=== PATIENT | male | born 1970 | race Two or more races ===

== ENCOUNTER → 2024-10-08 | Outpatient (CLI) | payer MEDICAID, SELFPAY ==
--- NOTE | 2024-10-08 11:30 | XR_ITS ---
Examination: Thyroid sonography complete TECHNIQUE: Grayscale sonographic images thyroid lobes Date and time: October 08, 2024 1143 hours INDICATIONS: Pulsating pain in the throat elevated TSH difficulty swallowing pain in the left neck 6 months FINDINGS: Right thyroid 4.4 cm No solid nodules Left thyroid 4.3 cm No solid nodules 2.8 x 1.3 x 1.6 cm vascular mass superior to the left thyroid IMPRESSION: No thyroid nodules 2.8 x 1.6 cm vascular mass superior to the left thyroid, recommend nuclear medicine parathyroid sestamibi scan follow-up
== END | disposition home or self-care (01) ==
DX: R22.1 Localized swelling, mass and lump, neck (principal)
CPT/HCPCS: 76536

== ENCOUNTER 2024-12-07 07:57 | Outpatient (RCR) | payer MEDICAID, SELFPAY ==
--- NOTE | 2024-12-07 09:00 | XR_ITS ---
Examination: Nuclear medicine parathyroid scan Date and time: December 07, 2024 0853 hours INDICATIONS: Swollen painful throat beginning May 2024 TECHNIQUE AND FINDINGS: Intravenous administration 25.3 mCi technetium 99m sestamibi Anterior pinhole and chest images obtained to 4 hours Normal salivary gland activity IMPRESSION: No findings diagnostic for parathyroid adenoma
== END 2024-12-12 23:59 | disposition home or self-care (01) ==
LOC: SNUC 07:57
DX: E21.5 Disorder of parathyroid gland, unspecified (principal)
CPT/HCPCS: 78070; A9500

== ENCOUNTER → 2024-12-11 | Outpatient (CLI) | payer MEDICAID, SELFPAY ==
--- NOTE | 2024-12-11 15:32 | XR_ITS ---
Examination: PA lateral chest 2 views TECHNIQUE: Upright PA lateral chest 2 views Date and time: December 11, 2024 1540 hours INDICATIONS: Coughing 7 months. FINDINGS: Normal heart size. Lungs are clear. The osseous structures are intact IMPRESSION: No active disease.
== END | disposition home or self-care (01) ==
DX: R05.9 Cough, unspecified (principal); R00.0 Tachycardia, unspecified
CPT/HCPCS: 71046

== ENCOUNTER → 2024-12-16 | Outpatient (CLI) | payer MEDICAID, SELFPAY ==
--- NOTE | 2024-12-16 09:45 | XR_ITS ---
Examination: Ultrasound soft tissue neck TECHNIQUE: Grayscale sonographic images soft tissue neck Date and time: December 16, 2024 1036 hours INDICATIONS: Left mid neck pain beginning 3 months ago FINDINGS: Soft tissue mass mild vascularity 3.2 x 1.5 x 2.0 cm adjacent to the left jugular vein, noted on the thyroid sonogram October 08, 2024 IMPRESSION: Vascular soft tissue mass in the neck as above, recommend correlation with CT soft tissue neck post intravenous contrast follow-up
--- NOTE | 2024-12-16 09:53 | XR_ITS ---
Examination: Esophagram standard Upright PA chest single view Soft tissue lateral neck single view 20 spot fluoroscopic films of the esophagus Fluoroscopy Date and time: November 19, 2024 0958 hours INDICATIONS: Difficulty swallowing 5 months TECHNIQUE AND FINDINGS: Upright PA chest demonstrates normal heart size lungs Soft tissue lateral neck demonstrates moderate to advanced degenerative disc disease C5-C6 with anterior and posterior osteophyte formation Normal epiglottis Patient swallowed thin barium with isolated primary peristaltic esophageal waves Numerous secondary and tertiary esophageal contractions Moderate intermittent gastroesophageal reflux 20% stenosis at the gastroesophageal junction Small sliding esophageal hernia IMPRESSION: Significant esophageal dysmotility Moderate intermittent gastroesophageal reflux 20% stricture at the gastroesophageal junction likely related to reflux esophagitis but clinical correlation advised, consider endoscopy follow-up as clinically warranted
== END | disposition home or self-care (01) ==
PROVIDERS: Referring Provider Internal Medicine Gastroenterology; Visit Provider Internal Medicine Gastroenterology
DX: K21.9 Gastro-esophageal reflux disease without esophagitis (principal); K22.2 Esophageal obstruction; R22.1 Localized swelling, mass and lump, neck
CPT/HCPCS: 74220; 76536; A4649

== ENCOUNTER 2025-02-23 04:11 | Emergency (ER) | payer MEDICAID, SELFPAY ==
[2025-02-23] VITALS (7 sets, daily range): BP systolic 115–155; BP diastolic 70–84; PULSE 67–116; RESP 16–99; TEMP 36.7–37.1; O2SAT 98–100; BMI 26.7
--- NOTE | 2025-02-23 04:14 | PD.EDADULT ---
ED General E/[facility] General Chief complaint: Dental/Oral/Throat Stated complaint: SORE THROAT X 1YEAR Time Seen by Provider: 02/23/25 04:14 Arrival date/time: 02/23/25 04:11 E / [facility] / [facility] narrative: Marty is a 54 y/o male with PMHx hepatocyte necrosis and septic shock who comes in for an evaluation of trouble swallowing and choking. Patient reports that he recently had a fluoroscopy done which showed significant esophageal dysmotility and 20% stenosis distal esophagus. Patient was post to get an endoscopy done later, however is still pending that work outpatient. Patient reports that the last thing he ate was yesterday which was from soup. He reports also trouble breathing as well. Denies any recent travel or sick contacts. Denies any known exposures to any medicines or substances. He says that he had an ultrasound done of his neck several months back for his thyroid. He also says that he has a mass in his neck has been growing as well. He also endorses weight loss. Denies any smoking history. Related Data Previous Rx's ?Medication ?Instructions ?Recorded amoxicillin 875 mg-potassium 1 tab PO BID #8 tabs 04/01/19 clavulanate 125 mg tablet (Augmentin) aspirin 81 mg tablet,delayed 81 mg PO QDAY #30 tabs 04/01/19 release (Aspir-Low) atorvastatin 40 mg tablet 40 mg PO QPM #30 tabs 04/01/19 Allergies Allergy/AdvReac Type Severity Reaction Status Date / Time ibuprofen Allergy Intermediate Hives Verified 03/31/19 21:16 Review of Systems Review of Systems Narrative Review of Systems: 12 point ROS reviewed and is otherwise negative unless stated directly in the HPI ED Exam Narrative Physical exam: General: AAOx3, in mild distress, having trouble speaking and swallowing as we speak HEENT: Moist mucous membranes, conjunctiva clear, EOMI, PERRLA, eyes are red. 2x3 mass not tender to palpitation located in L frontal aspect of mid throat lateral to thyroid Cardiovascular: S1, S2, radial pulses +2 bilat, RRR Pulmonary: CTAB bilat no cough, no wheezing, mildly aspirating as we speak GI: No tenderness to light or deep palpitation, no guarding, rigidity, rebound tenderness or distension Extremities: No presence of trace or pitting edema in lower extremities bilaterally, dorsalis pedis pulses +2 bilaterally Neuro: AAOx3, no focal motor or sensory deficits in the UE or LE bilat Psych: Able to somewhat cooperate. Course Quality Measures none Orders Category Date Time Status Bedside COVID-19 Antigen Test NOW Care 02/23/25 04:28 Completed Bedside Influenza A&B Antigen Test NOW Care 02/23/25 04:[address] Screening NOW Care 02/23/25 04:28 Completed EKG (ED ONLY) *Do not use* NOW Care 02/23/25 04:28 Completed Insert IV NOW Care 02/23/25 04:28 Completed NPO NOW Care 02/23/25 12:20 Completed Referral - Manifest/Order Organizer Print Orders Stat Cons 02/23/25 10:59 Active Diet NPO (NOW) Diet 02/23/25 12:[address] chest w con Stat Exams 02/23/25 04:[address] soft tissue neck w con Stat Exams 02/23/25 04:27 Completed EKG (ED Only) Stat Exams 02/23/25 04:28 Draft US thyroid Stat Exams 02/23/25 04:27 Completed CBC Stat Lab 02/23/25 05:04 Completed CMP [Comprehensive Metabolic Panel] Stat Lab 02/23/25 05:04 Completed Lactic Acid [Lactate (Lactic Acid)] Stat Lab 02/23/25 05:04 Completed Mag [Magnesium] Stat Lab 02/23/25 05:04 Completed Procalcitonin Stat Lab 02/23/25 05:04 Completed Troponin I Stat Lab 02/23/25 05:04 Completed Dexamethasone Inj [Decadron Inj] Med 02/23/25 12:21 Discontinued 10 mg IVP X1 ONE EPINEPHrine Rt Betina [Racemic Epi Rt Betina] Med 02/23/25 12:21 Discontinued 0.5 ml INH X1 ONE Sodium Chloride Rt Betina 0.9% [NS Rt Betina 0.9%] Med 02/23/25 12:21 Discontinued 3 ml INH PRN PRN Oxygen Delivery NOW RT 02/23/25 04:28 Completed Vital Signs Vital signs: Vital Signs Temperature 98.8 F 02/23/25 04:24 Pulse Rate 116 H 02/23/25 04:24 Respiratory Rate 20 02/23/25 04:24 Blood Pressure 155/82 H 02/23/25 04:24 Pulse Oximetry (%) 99 02/23/25 04:24 Oxygen Delivery Method Room Air 02/23/25 04:24 Discharge Plan Plan Patient Disposition: [facility] Care [facility] Facility Pt Being Transferred to: [facility] Service Needed for Transfer: Ear, Nose, Throat Prescriptions/Referrals Prescriptions/Med Rec: No Action aspirin [Aspir-Low] 81 mg Tablet,Delayed Release (Dr/Ec) 81 mg PO QDAY Qty: 30 0RF amoxicillin-pot clavulanate [Augmentin] 875-125 mg tablet 1 tab PO BID Qty: 8 0RF atorvastatin 40 mg tablet 40 mg PO QPM Qty: 30 0RF Referrals: Temporary Provider,ED [Primary Care Provider, Emergency Medicine] - In 1 week Problem List Clinical Impression: Dysphagia Patient/Caregiver Discharge Instructions Print Language: Israeli Stand Alone Forms: Chasity Award Info., Patient Portal Info Letter MDM Narrative MDM hospital course (for use when minimal MDM required): 0435: Ordered including soft tissue neck, ultrasound of thyroid, and also CT chest all with contrast. Also ordered basic labs, oxygen delivery and patient will be in main ED. Will insert IV as well. Also EKG and cardiac workup. 0555: Reviewed EKG as above, labs pending. Case passed down to morning ED provider, Dr. Woo. EKG Interpretation EKG #1: EKG Interpretation: Sinus rhythm, heart rate 96, QT 333, no ST changes at this time. Medication Administration(s) Medication Administration History Discontinued Medications Dexamethasone Sodium Phosphate (Dexamethasone Sod Phos Inj 10 Mg/Ml Vial) 10 mg IVP X1 ONE Stop: 02/23/25 12:22 Last Admin: 02/23/25 12:32 Dose: 10 mg Documented By: ROSALES Epinephrine (Epinephrine Rt Betina 0.5 Ml Nebu) 0.5 ml INH X1 ONE Stop: 02/23/25 12:22 Last Admin: 02/23/25 12:44 Dose: 0.5 ml Documented By: JOHN Sodium Chloride (Sodium Chloride Rt Betina 0.9% 3 Ml Nebu) 3 ml INH PRN PRN PRN Reason: SOLN Stop: 03/25/25 12:20 Last Admin: 02/23/25 12:44 Dose: 3 ml Documented By: JOHN
--- NOTE | 2025-02-23 04:27 | XR_ITS ---
EXAMINATION: Thyroid sonography complete TECHNIQUE: Grayscale sonographic images thyroid lobes Date and time: February 23, 2025, 0522 hours INDICATIONS: Bilateral throat pain 1 year FINDINGS: Right thyroid 3.5 cm Left thyroid 3.8 cm No thyroid nodules Soft tissue mass in the right mid neck 2.2 x 1.1 x 1.1 cm Mass in the left mid neck 4.1 x 2.5 x 1.8 cm IMPRESSION: Recommend CT soft tissue neck follow-up to assess prominent soft tissue masses in the right and left neck
--- NOTE | 2025-02-23 04:27 | XR_ITS ---
Examination: CT soft tissue neck, with intravenous contrast. 2-D coronal reconstructions. 2-D sagittal reconstructions. Date and time of exam : February 23, 2025, 0759 hours INDICATIONS: Difficulty swallowing beginning 1 year ago. CTDI: vol (mGy): 17.5 DLP: (mGycm): 532 Technique: 1.25 mm axial sections of the neck of the obtained. Coronal and sagittal reconstructions have been obtained. Intravenous contrast administered 60 cc Isovue-370. Low dose protocols were performed. One or more of the following dose reduction techniques were used; automated exposure control, adjustment of the mA and/or KV according to patient size, use of iterative reconstruction technique. Findings: Soft tissue tonsillar hypertrophy, no tonsillar abscess No encroachment upon the oropharynx Symmetrical submandibular glands and parotid glands Axial image 48 coronal image 39 consistent with large laryngeal tumor mass, at least 30 x 28 mm primarily involving the false vocal cord on the left Symmetrical thyroid lobes Normal epiglottis Prevertebral soft tissue prominence C4-C5 level IMPRESSION: Large left-sided laryngeal mass at least 30 x 28 mm Recommend MRI soft tissue neck follow-up pre and postcontrast
--- NOTE | 2025-02-23 04:27 | XR_ITS ---
Examination: CT chest with intravenous contrast 2-D sagittal and coronal reconstructions Exam date and time: February 23, 2025, 0812 hours INDICATIONS: Difficulty swallowing 1 year CTDI:vol (mGy) 9.35 DLP: (mGycm) 348 Technique: Multiple axial sections of the thorax have been obtained. Sections have been obtained, 3 mm slice thickness. Mediastinal and lung density settings have been obtained. Intravenous contrast administered, 60 cc Isovue 370. 2-D sagittal, coronal images obtained. Low dose protocols were performed. One or more of the following dose reduction techniques were used; automated exposure control, adjustment of the mA and/or KV according to patient size, use of iterative reconstruction technique. Findings: Comparison March 28, 2019 No thoracic aortic aneurysmal dilatation or dissection Pulmonary artery segments are not enlarged No pulmonary artery filling defects. No paratracheal tracheobronchial or bronchopulmonary adenopathy. 4 mm pulmonary nodule in the left lower lobe No pneumonia or pulmonary edema Fatty infiltration throughout the liver No gallstones Spleen not enlarged No pancreatic mass Kidneys partially visualized no hydronephrosis IMPRESSION: 4 mm pulmonary nodule in the left lower lobe No mediastinal lymphadenopathy No pneumonia or pulmonary edema
--- NOTE | 2025-02-23 04:28 | EKG_ITS ---
[facility], [place] Test Date: 2025-02-23 Pat Name: DONG ABRAHAM Department: Room: - Gender: Male [employer]ing [employer] Handler: : 1970 Requested By: Joel Candelario Order Number: [id number] Reading MD: Joel Candelario Measurements Intervals [place] Rate: 96 P: 60 DE: 142 QRS: 64 QRSD: 88 T: 46 QT: 333 QTc: 421 Interpretive Statements SINUS RHYTHM No previous ECG available for comparison /store/S0/[id number]/[id number].pdf
[2025-02-23 05:13] LABS: Lactate (Lactic Acid) 0.8 mMol/L (0.4-2.0)
[2025-02-23 05:23] LABS: Basophils # (Auto) 0.0 Thou/mm3 (0.0-0.2); Basophils % (Auto) 0 % (0-2.5); Eosinophils # (Auto) 0.2 Thou/mm3 (0.0-0.5); Eosinophils % (Auto) 3 % (0-10); Hematocrit 46.1 % (41.0-53.0); Hemoglobin 15.3 g/dL (13.5-16.0); Immature Granulocytes Auto 0.01 Thou/mm3 (0.00-0.00); Lymphocytes # (Auto) 1.4 Thou/mm3 (1.0-4.8); Lymphocytes % (Auto) 29 % (10-50); Mean Corpuscular HGB Conc 33.2 g/dl (31.0-37.0); Mean Corpuscular Hemoglobin 30.6 pg (25.0-35.0); Mean Corpuscular Volume 92 fL (80-100); Monocytes # (Auto) 0.4 Thou/mm3 (0.0-0.8); Monocytes % (Auto) 9 % (0-12); Neutrophils # (Auto) 2.9 Thou/mm3 (1.8-7.7); Neutrophils % (Auto) 59 % (37-80); Nucleated Red Blood Cell # 0.00 Thou/mm3 (0.00-0.00); Nucleated Red Blood Cell % 0 /100 WBC (0); Platelet Count 192 Thou/mm3 (140-440); RDW Standard Deviation 46.2 fL (35.1-43.9); Red Blood Count 5.00 Miln/mm3 (4.50-5.90); White Blood Count 5.0 Thou/mm3 (3.8-10.6)
[2025-02-23 05:54] LABS: Alanine Aminotransferase 21 U/L (10-49); Albumin, Serum 4.3 gm/dL (3.5-5.0); Albumin/Globulin Ratio 1.7 (1.2-2.2); Alkaline Phosphatase 62 U/L (46-116); Anion Gap 9 (7-16); Aspartate Amino Transferase 20 U/L (0-34); BUN/Creatinine Ratio 13 Ratio (12-20); Bilirubin,Total 0.4 mg/dL (0.3-1.2); Blood Urea Nitrogen 12 mg/dL (9-23); Calcium 9.3 mg/dL (8.3-10.6); Calcium (Corrected) 9.3 mg/dL (8.5-10.1); Carbon Dioxide 28.9 mMol/L (20.0-31.0); Chloride 106 mMol/L (98-107); Creatinine (Component) 0.9 mg/dL (0.6-1.3); Estimated Creatinine Clearance 86.7 mL/min (>60); Globulin 2.6 gm/dL (2.3-3.5); Glucose 116 mg/dL (74-106); Magnesium 1.9 mg/dL (1.6-2.6); Osmolality,Calculated 287 (275-295); Potassium 3.8 mMol/L (3.4-5.1); Procalcitonin < 0.04 ng/ml (0.0-0.49); Sodium 144 mMol/L (136-145); Total Protein 6.9 gm/dL (5.7-8.2); Troponin I < 0.020 ng/mL (0.0-0.045); eGFR > 60 See Note
--- NOTE | 2025-02-23 06:43 | PRELIM_ITS ---
Thyroid ultrasound. February 23, 2025 0522 hours Clinical history: Mass. Comparison: No prior study is available for comparison. Findings: The right lobe of the thyroid measures 3.5 x 2.4 x 1.2 cm and is homogenous in echotexture. The left lobe of the thyroid measures 3.8 x 2 x 1 cm and is homogenous in echotexture. The isthmus measures 4.2 mm. No solid or cystic mass lesion is noted in the thyroid. Both lobes of the thyroid demonstrate normal color flow signals. There is solid mass at the right mid neck adjacent to the right internal jugular vein, measuring 2.2 x 1.1 x 1.1 cm. Large solid mass with minimal vascularity is seen at the left mid neck adjacent to the left internal jugular vein, measuring 4.1 x 2.5 x 1.8 cm. Impression: No solid or cystic mass lesion in the thyroid. TIRADS Score: 1 Mid neck masses adjacent to inferior vena cava bilaterally (R<L), possibly enlarged cervical lymph nodes. Recommend clinical correlation and follow-up. Report Electronically Signed By: Juliana Farris 02/23/2025 6:42:36 AM [EST]
--- NOTE | 2025-02-23 07:09 | PD.EDADDENDU ---
Emergency Room Addendum <Marilu Woo MD - Last Filed: 02/23/25 07:10> Addendum Narrative: Assumed care of patient at change of shift. <Makeda Torres - Last Filed: 02/23/25 12:29> Addendum Narrative: 0600: Care assumed from resident Dr. Candelario PGY2, the previous shift emergency physician. Past medical, surgical, social and family history reviewed. Vitals and home medications reviewed. I will assume the care of the patient at this time, pending CT reports and final disposition. Please refer to the emergency department record for history and examination from initial visit.?The following addendum documentation note is intended to reflect any pending information, findings, or radiology results not included in the patient?s initial chart. 1056a: Patient reports feeling improved from initial presentation. 54 year old male with known history of mass in neck for 6 months and undergoing studies presents to the ED for evaluation of difficulty breathing that woke him from sleep at 04:00 AM today. Reportedly had experienced similar difficulty breathing, at a lesser severity, 2 weeks ago. Accompanied by some difficulty swallowing though states he has had difficulty swallowing x 1 year. Denies any fevers, chills, cough. Denies having any biopsies performed of the mass. 1120a: I spoke with transfer nurse and transfer has been initiated. 1145a: I spoke with transfer nurse Racquel at [facility]. Discussed patients PMHx, HPI, ED course, exam findings, labs, and radiology results. States she will present the case to their ENT team. 1220p: Patient has been accepted at [facility]. RADIOLOGY Ordering Physician: Joel Candelario MD Date of Service: 02/23/25 Procedure(s): CT chest w raphael Accession Number(s): [id number] cc: Joel Candelario MD; Edis Quiroz MD~ Examination: CT chest with intravenous contrast 2-D sagittal and coronal reconstructions Exam date and time: February 23, 2025, 0812 hours INDICATIONS: Difficulty swallowing 1 year CTDI:vol (mGy) 9.35 DLP: (mGycm) 348 Technique: Multiple axial sections of the thorax have been obtained. Sections have been obtained, 3 mm slice thickness. Mediastinal and lung density settings have been obtained. Intravenous contrast administered, 60 cc Isovue 370. 2-D sagittal, coronal images obtained. Low dose protocols were performed. One or more of the following dose reduction techniques were used; automated exposure control, adjustment of the mA and/or KV according to patient size, use of iterative reconstruction technique. Findings: Comparison March 28, 2019 No thoracic aortic aneurysmal dilatation or dissection Pulmonary artery segments are not enlarged No pulmonary artery filling defects. No paratracheal tracheobronchial or bronchopulmonary adenopathy. 4 mm pulmonary nodule in the left lower lobe No pneumonia or pulmonary edema Fatty infiltration throughout the liver No gallstones Spleen not enlarged No pancreatic mass Kidneys partially visualized no hydronephrosis IMPRESSION: 4 mm pulmonary nodule in the left lower lobe No mediastinal lymphadenopathy No pneumonia or pulmonary edema Dictated By: Edis Quiroz MD Signed By: <Electronically signed by Edis Quiroz MD in OV>02/23/25 0921 Ordering Physician: Joel Candelario MD Date of Service: 02/23/25 Procedure(s): CT soft tissue neck w con Accession Number(s): [id number] cc: Joel Candelario MD; Edis Quiroz MD~ Examination: CT soft tissue neck, with intravenous contrast. 2-D coronal reconstructions. 2-D sagittal reconstructions. Date and time of exam : February 23, 2025, 0759 hours INDICATIONS: Difficulty swallowing beginning 1 year ago. CTDI: vol (mGy): 17.5 DLP: (mGycm): 532 Technique: 1.25 mm axial sections of the neck of the obtained. Coronal and sagittal reconstructions have been obtained. Intravenous contrast administered 60 cc Isovue-370. Low dose protocols were performed. One or more of the following dose reduction techniques were used; automated exposure control, adjustment of the mA and/or KV according to patient size, use of iterative reconstruction technique. Findings: Soft tissue tonsillar hypertrophy, no tonsillar abscess No encroachment upon the oropharynx Symmetrical submandibular glands and parotid glands Axial image 48 coronal image 39 consistent with large laryngeal tumor mass, at least 30 x 28 mm primarily involving the false vocal cord on the left Symmetrical thyroid lobes Normal epiglottis Prevertebral soft tissue prominence C4-C5 level IMPRESSION: Large left-sided laryngeal mass at least 30 x 28 mm Recommend MRI soft tissue neck follow-up pre and postcontrast Dictated By: Edis Quiroz MD Signed By: <Electronically signed by Edis Quiroz MD in OV>02/23/25 1033 Ordering Physician: Joel Candelario MD Date of Service: 02/23/25 Procedure(s): US thyroid Accession Number(s): [id number] cc: Joel Candelario MD; Edis Quiroz MD~ EXAMINATION: Thyroid sonography complete TECHNIQUE: Grayscale sonographic images thyroid lobes Date and time: February 23, 2025, 0522 hours INDICATIONS: Bilateral throat pain 1 year FINDINGS: Right thyroid 3.5 cm Left thyroid 3.8 cm No thyroid nodules Soft tissue mass in the right mid neck 2.2 x 1.1 x 1.1 cm Mass in the left mid neck 4.1 x 2.5 x 1.8 cm IMPRESSION: Recommend CT soft tissue neck follow-up to assess prominent soft tissue masses in the right and left neck Dictated By: Edis Quiroz MD Signed By: <Electronically signed by Edis Quiroz MD in OV>02/23/25 1101
--- NOTE | 2025-02-23 11:29 | PC.CM ---
Addendum entered by Milka Peñaloza RN 02/23/25 12:31: Racquel transfer nurse called me and patient accepted to [facility] with Dr. Ravi Lee ED to ED. Number to call and give report is [phone]. I will complete packet and get CD and set up transport. Addendum entered by Milka Peñaloza RN 02/23/25 11:47: 1140 I connected Racquel with [facility] transfer center to Dr. Woo to discuss patient condition and reason for trasnfer. Original Note: 1105 I received a referral to transfer patient for laryngeal mass. Patient is needing ENT. I faxed referral to [facility] and started packet.
[2025-02-23] MEDS: DEXAMETHASONE SOD PHOS INJ 10 MG/ML VIAL IVP (12:32)
[2025-02-23] MEDS: EPINEPHrine RT SOL 0.5 ML NEBU INH (12:44)
[2025-02-23] MEDS: SODIUM CHLORIDE RT SOL 0.9% 3 ML NEBU INH (12:44)
--- NOTE | 2025-02-23 14:10 | PC.NURSE ---
report given to miguel ángel burden and ems pt stable for transfer. nurse will resume care. stable for transport.
== END 2025-02-23 14:10 | disposition short-term general hospital (02) ==
PROVIDERS: Emergency Provider Emergency Medicine
DX: J38.7 Other diseases of larynx (principal); R91.1 Solitary pulmonary nodule; Z75.1 Person awaiting admission to adequate facility elsewhere
CPT/HCPCS: 36415; 70491; 71260; 76536; 80053; 83605; 83735; 84145; 84484; 85025; 87400; 87811; 93005; 94640; 96374; 99284; A4649; J1100; Q9967

== ENCOUNTER 2025-04-14 13:05 | Emergency (ER) | payer MEDICAID, SELFPAY ==
[2025-04-14 13:06] VITALS: BMI 25.2
[2025-04-14 13:17] VITALS: BP 107/73; PULSE 94; RESP 16; TEMP 36.7; O2SAT 97
--- NOTE | 2025-04-14 13:41 | EDNOTE_ITS ---
ED General RME/HPI General Chief complaint: General Adult/Misc Complain Stated complaint: TRACH CAP BROKEN Time Seen by Provider: 04/14/25 13:14 Arrival date/time: 04/14/25 13:05 54-year-old male presents to the emergency department today stating he has a tracheostomy and would like his [place] valve changed Limitations: no limitations Related Data Previous Rx's ?Medication ?Instructions ?Recorded amoxicillin 875 mg-potassium 1 tab PO BID #8 tabs 03/20 08/05 clavulanate 125 mg tablet (Augmentin) aspirin 81 mg tablet,delayed 81 mg PO QDAY #30 tabs release (Aspir-Low) atorvastatin 40 mg tablet 40 mg PO QPM #30 tabs Allergies Allergy/AdvReac Type Severity Reaction Status Date / Time ibuprofen Allergy Intermediate Hives Verified 03/31/19 21:16 Review of Systems Review of Systems Systems Reviewed: All systems reviewed, normal except as documented Constitutional Constitutional: Reports system reviewed and no additional complaints, except as documented, Denies fever(s) and Denies headache(s) Eyes Eyes: Reports system reviewed and no additional complaints, except as documented and Denies blurry vision ENT Ears, Nose, Mouth, and Throat: Reports system reviewed and no additional complaints, except as documented, Denies headache(s), Denies nasal congestion, Denies nasal discharge and Reports other (Tracheostomy in place) Cardiovascular Cardiovascular: Reports system reviewed and no additional complaints, except as documented, Denies chest pain and Denies dyspnea Respiratory Respiratory: Reports system reviewed and no additional complaints, except as documented, Denies chest congestion, Denies cough and Denies dyspnea Gastrointestinal Gastrointestinal: Reports system reviewed and no additional complaints, except as documented and Denies abdominal pain Integumentary/Breasts Skin/Breast: Reports system reviewed and no additional complaints, except as documented and Denies rash Neurologic Neurologic: Reports system reviewed and no additional complaints, except as documented, Reports as per HPI and Denies headache(s) Past Medical History Past Medical History NEUROLOGIC: Negative Neurological Disorders or Seizures CARDIAC: Negative Cardiac Disorders or Congestive Heart Failure RESPIRATORY: Negative Chronic Obstructive Pulmonary Disease (COPD) or Asthma GASTROINTESTINAL: Positive Gastrointestinal Disorders (esophageal dysmotility) GENITOURINARY: Negative Genitourinary Disorders or Renal Disease MUSCULOSKELETAL: Negative Musculoskeletal Disorders ENDOCRINE: Negative Endocrine Disorders, Diabetes Mellitus Type 1 or Diabetes Mellitus Type 2 HEMATOLOGIC: Negative Blood Disorders or Sickle Cell Disease OTHER HISTORY: Negative Blood Transfusions or Anesthesia Reactions Social History SMOKING STATUS: Never smoker SUBSTANCE USE: does not use ED Exam General Limitations: Present no limitations General appearance: Present alert and in no apparent distress Head Head exam: Present atraumatic, normocephalic and normal inspection Eye Eye exam: Present normal appearance, PERRL and EOMI; Absent conjunctival injection ENT ENT exam: Present normal exam, normal oropharynx and mucous membranes moist Expanded ENT Exam Throat exam: Present other (Tracheostomy in place) Neck Neck exam: Present normal inspection, full ROM and trachea midline Chest Chest inspection: Present normal inspection and symmetric chest wall rise Respiratory Respiratory exam: Present normal lung sounds bilaterally; Absent respiratory distress Cardiovascular Cardiovascular exam: Present regular rate, normal rhythm and normal heart sounds Abdominal Exam Abdominal exam: Present soft and normal bowel sounds Extremities Exam Extremities exam: Present normal inspection and full ROM Back Exam Back exam: Present normal inspection and full ROM Neurological Exam Neurological exam: Present alert, oriented X3 and CN II-XII intact Psychiatric Psychiatric exam: Present normal affect and normal mood Skin Skin exam: Present warm, dry, intact and normal color Course Quality Measures none Orders Category Date Time Status Passy Mil[place]ros Valve NOW Care 04/14/25 13:41 Ordered Vital Signs Vital signs: Vital Signs Temperature 98.1 F 04/14/25 13:17 Pulse Rate 94 04/14/25 13:17 Respiratory Rate 16 04/14/25 13:17 Blood Pressure 107/73 04/14/25 13:17 Pulse Oximetry (%) 97 04/14/25 13:17 Oxygen Delivery Method Room Air 04/14/25 13:17 O2 saturation 97% room air within normal limits Discharge Plan Plan Patient Disposition: HOME (Self Care) Discharge Disposition comment: Stable Prescriptions/Referrals Prescriptions/Med Rec: No Action aspirin [Aspir-Low] 81 mg Tablet,Delayed Release (Dr/Ec) 81 mg PO QDAY Qty: 30 0RF amoxicillin-pot clavulanate [Augmentin] 875-125 mg tablet 1 tab PO BID Qty: 8 0RF atorvastatin 40 mg tablet 40 mg PO QPM Qty: 30 0RF Problem List Clinical Impression: Tracheostomy complication Patient/Caregiver Discharge Instructions Additional Instructions: Please follow up with your primary care doctor in the next 24-48hrs for any worsening symptoms return here immediately Print Language: [place] Stand Alone Forms: Chasity Mata Info., Patient Portal Info Letter PA/LINOTYPE OPERATOR Supervising Physician PA/LINOTYPE OPERATOR Supervising Physician: Dr. noemy SY Narrative MDM hospital course (for use when minimal MDM required): 54-year-old male presents to the emergency department today stating he has a tracheostomy and would like his Passy-[place] valve changed Clinically patient well-appearing does not appear ill or toxic no acute distress Spoke with respiratory who came down and changed patient's Passy-Mil[place]ros valve Patient medical for the care Patient discharged home in no distress to follow-up with primary care doctor in the next 24 to 48 hours and for any worsening symptoms to return to the ER immediately Clinical Information Provided by: patient Medical Records reviewed [facility] Meds/Rx considered, not ordered None Labs/Rad/Tests considered, not ordered None Chronic Illness/Social Conditions which may negatively complicate care or outcome(s)-explain: None or not applicable EKG EKG not done Labs Labs: none Imaging Imaging interpretation: none Medication Administration(s) none Diagnosis Differential Diagnosis ED Complaint MDM: Tracheostomy care
[2025-04-14 14:24] VITALS: PULSE 84; RESP 26; O2SAT 97
== END 2025-04-14 15:39 | disposition home or self-care (01) ==
LOC: SERX 14:17
PROVIDERS: Emergency Provider Emergency Medicine
DX: J95.09 Other tracheostomy complication (principal); Y83.2 Surgical operation with anastomosis, bypass or graft as the cause of abnormal reaction of the patient, or of later complication, without mention of misadventure at the time of the procedure
CPT/HCPCS: 99282